=== PATIENT | male | born 1975 ===

== ENCOUNTER 2019-01-30 22:19 | Observation (INO) | payer OTHER ==
[2019-01-30] MEDS ORDERED: Sodium Chloride 0.9% 1,000 ML IV STA (22:37)
[2019-01-30 23:58] LABS: SQUAMOUS EPITHIAL < 1 /hpf (0-5); URINE BILIRUBIN NEGATIVE (NEGATIVE); URINE BLOOD NEGATIVE (NEGATIVE); URINE CLARITY CLEAR (Clear); URINE COLOR STRAW (YELLOW); URINE GLUCOSE (UA) >=500 mg/dL (NEGATIVE); URINE LEUKOCYTE ESTERASE NEG Leu/uL (Negative); URINE PROTEIN 100 mg/dL (NEGATIVE); URINE UROBILINOGEN 0.2-1.0 mg/dL (0.2-1.0)
[2019-01-31 00:06] LABS: VENOUS BLOOD GAS BASE EXCESS 0.1 mmol/L (0.0-2.0); VENOUS BLOOD GAS PCO2 39 mmHg (40-60); VENOUS BLOOD GAS PO2 46 mm/Hg (30-55); VENOUS BLOOD PH 7.41 (7.32-7.43)
[2019-01-31 00:11] LABS: BARBITURATES, UR NEGATIVE (NEGATIVE); BENZODIAZEPINES, UR NEGATIVE (NEGATIVE); OPIATES, UR NEGATIVE (NEGATIVE); PHENCYCLIDINE, UR NEGATIVE (NEGATIVE)
[2019-01-31 00:20] LABS: BASO # 0.1 K/uL (0.0-0.2); BASO % 0.8 % (0.0-2.0); EOS # 0.2 K/uL (0.0-0.7); EOS % 1.3 % (0.0-4.0); HEMOGLOBIN 15.6 g/dL (12.0-18.0); LYMPH # 4.6 K/uL (1.0-4.3); LYMPH % 29.4 % (20.0-40.0); MEAN CELL VOLUME 85.4 fl (80.0-94.0); MEAN CORPUSCULAR HEMOGLOBIN 29.9 pg (27.0-31.0); MEAN PLATELET VOLUME 9.3 fl (7.2-11.7); MONO % 6.7 % (0.0-10.0); NEUT # 9.6 K/uL (1.8-7.0); NEUT % 61.8 % (50.0-75.0); NRBC % 0.2 % (0.0-0.0); RBC 5.23 Mil/uL (4.40-5.90); RED CELL DISTRIBUTION WIDTH 13.1 % (11.5-14.5); WHITE BLOOD COUNT 15.6 K/uL (4.8-10.8)
[2019-01-31 00:21] LABS: ACETAMINOPHEN < 10.0 ug/ml (10.0-30.0); BLOOD UREA NITROGEN 21 mg/dl (9-20); CALCIUM 9.3 mg/dL (8.4-10.2); GFR NON-AFRICAN AMERICAN > 60; SALICYLATE < 1.0 mg/dl
[2019-01-31] MEDS ORDERED: Insulin Regular 100 units/ml SC STA ×4 (00:54→19:25)
[2019-01-31] MEDS ORDERED: Insulin Regular 100 units/ml ONE ×3 (01:04→17:51)
--- NOTE | 2019-01-31 01:04 | ED PDOC ---
HPI: Psych/Substance Abuse Time Seen by Provider: 01/30/19 22:29 Chief Complaint (Nursing): Psychiatric Evaluation Chief Complaint (Provider): Psychiatric Evaluation History Per: Patient, Family () History/Exam Limitations: no limitations Onset/Duration Of Symptoms: Days (x 2 weeks) Current Symptoms Are (Timing): Still Present Suicide/Self Injury Attempted (Context): None Additional Complaint(s): 43 year old male with a history of major depressive disorder and diabetes presents to the ED with for evaluation of bizarre behavior for the last 2 weeks. reports his behavior has become increasingly bizarre during that time. She states he was spending money that they do not currently have, being possessive over money, masturbating constantly throughout the day, generally not making sense and leaving the car running for hours. states they have a 12 year old daughter at home and that she does not feel comfortable with the patient around her. PMD: Dr. Luz Past Medical History Reviewed: Historical Data, Nursing Documentation, Vital Signs Vital Signs: Last Vital Signs Temp 99.6 F 01/30/19 22:21 Pulse 104 H 01/30/19 22:21 Resp 16 01/30/19 22:21 BP 153/82 H 01/30/19 22:21 Pulse Ox 99 01/30/19 22:21 - Medical History PMH: Asthma ("WHEN I WAS YOUNGER- NO LONGER A PROBLEM."), Depression (major depressive disorder), Diabetes, HTN, Hypercholesterolemia Denies: Chronic Kidney Disease - Surgical History Surgical History: No Surg Hx - Family History Family History: States: Unknown Family Hx - Home Medications Home Medications: Ambulatory Orders Medication Instructions Recorded Atorvastatin [Lipitor] 20 mg PO DAILY 11/30/18 Insulin Aspart, Recombinant 15 unit SC BID 11/30/18 [Novolog] Lisinopril [Zestril] 5 mg PO DAILY 11/30/18 MetFORMIN [glucOPHAGE] 1,000 mg PO BID 11/30/18 hydrALAZINE [hydralazine 10 mg PO DAILY 11/30/18 Hydrochloride] - Allergies Allergies/Adverse Reactions: Allergies Allergy/AdvReac Type Severity Reaction Status Date / Time Penicillins Allergy Intermediate "RASH AND Verified 11/30/18 08:42 SWELLING" Review of Systems ROS Statement: Except As Marked, All Systems Reviewed And Found Negative Psych: Positive for: Other (bizarre behavior) Physical Exam - Reviewed Nursing Documentation Reviewed: Yes Vital Signs Reviewed: Yes - Physical Exam Appears: Positive for: Non-toxic, No Acute Distress Head Exam: Positive for: ATRAUMATIC, NORMAL INSPECTION, NORMOCEPHALIC Skin: Positive for: Normal Color, Warm, Dry Eye Exam: Positive for: EOMI, Normal appearance, PERRL Neck: Positive for: Normal, Painless ROM, Supple Cardiovascular/Chest: Positive for: Regular Rate, Rhythm. Negative for: Murmur Respiratory: Positive for: Normal Breath Sounds. Negative for: Respiratory Distress Extremity: Positive for: Normal ROM (x 4). Negative for: Deformity Neurological/Psych: Positive for: Awake, Alert, Normal Tone, Other (Patient is exhibiting bizarre behavior. On exam, he is gesticulating playing the violin and making contorted facial movements. ). Negative for: Motor/Sensory Deficits - Laboratory Results Result Diagrams: 01/30/19 23:55 01/30/19 23:55 Lab Results: pO2 46 mm/Hg (30-55) 01/30/19 23:50 VBG pH 7.41 (7.32-7.43) 01/30/19 23:50 VBG pCO2 39 mmHg (40-60) L 01/30/19 23:50 VBG HCO3 24.6 mmol/L 01/30/19 23:50 VBG Total CO2 25.9 mmol/L (22-28) 01/30/19 23:50 VBG O2 Sat (Calc) 87.0 % (40-65) H 01/30/19 23:50 VBG Base Excess 0.1 mmol/L (0.0-2.0) 01/30/19 23:50 VBG Potassium 3.7 mmol/L (3.6-5.2) 01/30/19 23:50 Sodium 134.0 mmol/L (132-148) 01/30/19 23:50 Chloride 97.0 mmol/L (98-107) L 01/30/19 23:50 Glucose 367 mg/dL (75-110) H 01/30/19 23:50 Lactate 1.5 mmol/L (0.7-2.1) 01/30/19 23:50 FiO2 21.0 % 01/30/19 23:50 Urine Color Straw (YELLOW) 01/30/19 23:30 Urine Clarity Clear (Clear) 01/30/19 23: Urine pH 6.0 (5.0-8.0) 01/30/19 23: Ur Specific [place] 1.030 (1.003-1.030) 01/30/19: Urine Protein 100 mg/dL (NEGATIVE) 01/30/19: Urine Glucose (UA) >=500 mg/dL (NEGATIVE) 01/30/19: Urine Ketones Trace mg/dL (NEGATIVE) 01/30/19 23: Urine Blood Negative (NEGATIVE) 01/30/19: Urine Nitrate Negative (NEGATIVE) 01/30/19: Urine Bilirubin Negative (NEGATIVE) 01/30/19 Urine Urobilinogen 0.2-1.0 mg/dL (0.2-1.0) 01/30/19: Ur Leukocyte Esterase Neg Luisa/uL (Negative) 01/30/19: Urine Microscopic WBC < 1 /hpf (0-5) 01/30/19: Ur Squamous Epith Cells < 1 /hpf (0-5) 01/30/19: - ECG O2 Sat by Pulse Oximetry: 99 (RA) Pulse Ox Interpretation: Normal Medical Decision Making Medical Decision Makin:38 A&P: Decompensated manic bipolar disorder Will obtain labs for medical clearance and have patient evaluated by crisis. Orders: --VBG --CT Head --EKG --Acetaminophen --Alcohol serum --BMP --CBC --Salicylate --UDS --Ativan 2 mg IV --Insulin 15 units SC --NS IV 1,000 mls --UA 1:00 Patient hyperglycemic but no in DKA given normal pH, no gap, normal bicarb 3:00 EKG and CXR are normal Patient being evaluated by crisis 5:00 PAtient is to be screened by [facility] Resting comfortably currently Will give 1L NS to reduce blood sugar 7:[address] Becerra pending [facility] eval Scribe Attestation: Documented by Aide Solitario, acting as a scribe Kurt Mix MD Provider Scribe Attestation: All medical record entries made by the Scribe were at my direction and personally dictated by me. I have reviewed the chart and agree that the record accurately reflects my personal performance of the history, physical exam, medic al decision making, and the department course for this patient. I have also personally directed, reviewed, and agree with the discharge instructions and disposition. Disposition - Clinical Impression Clinical Impression: Juju - Patient ED Disposition Is Patient to be Admitted: Transfer of Care - Disposition Disposition: Transfer of Care Disposition Time: 07:00 Condition: STABLE Forms: [employer] (Gabonese) Patient Signed Over To: Chaim Becerra
[2019-01-31] MEDS ORDERED: Sodium Chloride 0.9% 1,000 ML IV STA ×2 (06:07→20:28)
--- NOTE | 2019-01-31 07:04 | ED PDOC ---
- Laboratory Results Result Diagrams: 01/30/19 23:55 01/30/19 23:55 Lab Results: pO2 46 mm/Hg (30-55) 01/30/19 23:50 VBG pH 7.41 (7.32-7.43) 01/30/19 23:50 VBG pCO2 39 mmHg (40-60) L 01/30/19 23:50 VBG HCO3 24.6 mmol/L 01/30/19 23:50 VBG Total CO2 25.9 mmol/L (22-28) 01/30/19 23:50 VBG O2 Sat (Calc) 87.0 % (40-65) H 01/30/19 23:50 VBG Base Excess 0.1 mmol/L (0.0-2.0) 01/30/19 23:50 VBG Potassium 3.7 mmol/L (3.6-5.2) 01/30/19 23:50 Sodium 134.0 mmol/L (132-148) 01/30/19 23:50 Chloride 97.0 mmol/L (98-107) L 01/30/19 23:50 Glucose 367 mg/dL (75-110) H 01/30/19 23:50 Lactate 1.5 mmol/L (0.7-2.1) 01/30/19 23:50 FiO2 21.0 % 01/30/19 23:50 Urine Color Straw (YELLOW) 01/30/19 23:30 Urine Clarity Clear (Clear) 01/30/19 23:30 Urine pH 6.0 (5.0-8.0) 01/30/19 23:30 Ur Specific [place] 1.030 (1.003-1.030) 01/30/19 23:30 Urine Protein 100 mg/dL (NEGATIVE) 01/30/19 23:30 Urine Glucose (UA) >=500 mg/dL (NEGATIVE) 01/30/19 23:30 Urine Ketones Trace mg/dL (NEGATIVE) 01/30/19 23:30 Urine Blood Negative (NEGATIVE) 01/30/19 23:30 Urine Nitrate Negative (NEGATIVE) 01/30/19 23:30 Urine Bilirubin Negative (NEGATIVE) 01/30/19 23:30 Urine Urobilinogen 0.2-1.0 mg/dL (0.2-1.0) 04/17/19 23:30 Ur Leukocyte Esterase Neg Luisa/uL (Negative) 01/30/19 23:30 Urine Microscopic WBC < 1 /hpf (0-5) 01/30/19 23:30 Ur Squamous Epith Cells < 1 /hpf (0-5) 01/30/19 23:30 - ECG O2 Sat by Pulse Oximetry: 97 Pulse Ox Interpretation: Normal Medical Decision Making Medical Decision Makin: Dr. Mix signed out to Dr. Becerra. Pending [facility] evaluation. 1043: Crisis saw pt. Will sign in. Medically stable for further psych eval. Disposition - Clinical Impression Clinical Impression: Bipolar disorder, unspecified - POA Present On Arrival: None - Disposition Disposition: Admitted as In-Patient Disposition Time: 10:44 Condition: STABLE
--- NOTE | 2019-01-31 08:54 | CT ---
Date of service: 01/30/2019 PROCEDURE: CT HEAD WITHOUT CONTRAST. HISTORY: Altered mental status COMPARISON: None available. TECHNIQUE: Axial computed tomography images were obtained through the head/brain without intravenous contrast. Radiation dose: Total exam DLP = 877.13 mGy-cm. This CT exam was performed using one or more of the following dose reduction techniques: Automated exposure control, adjustment of the mA and/or kV according to patient size, and/or use of iterative reconstruction technique. FINDINGS: HEMORRHAGE: No intracranial hemorrhage. BRAIN: Whitaker-white matter differentiation is preserved. There is no mass, mass effect or abnormal extra-axial fluid collection. There is no territorial infarction. The midline sagittal structures are normal. VENTRICLES: There is mild age-related global parenchymal volume loss and proportionate enlargement of the ventricles and cortical sulci. CALVARIUM: There is no calvarial fracture or extracranial soft tissue swelling. PARANASAL SINUSES: Predominantly clear. MASTOID AIR CELLS: Predominantly clear. OTHER FINDINGS: None. IMPRESSION: No acute intracranial abnormality. A preliminary report was provided by [facility].
--- NOTE | 2019-01-31 12:58 | CP.PCM.CON ---
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 Past Patient History - Past Medical History & Family History Past Medical History?: Yes - Past Social History Smoking Status: Light Smoker < 10 Cigarettes Daily - CARDIAC Hx Hypercholesterolemia: Yes Hx Hypertension: Yes - PULMONARY Hx Asthma: Yes ("WHEN I WAS YOUNGER- NO LONGER A PROBLEM.") - NEUROLOGICAL HX Cerebrovascular Accident: No Hx Seizures: No - HEENT Hx HEENT Problems: No - RENAL Hx Chronic Kidney Disease: No - ENDOCRINE/METABOLIC Hx Endocrine Disorders: Yes Hx Diabetes Mellitus Type 2: Yes - HEMATOLOGICAL/ONCOLOGICAL Hx Cancer: No Hx Human Immunodeficiency Virus (HIV): No - INTEGUMENTARY Hx Dermatological Problems: No - MUSCULOSKELETAL/RHEUMATOLOGICAL Hx Musculoskeletal Disorders: Yes Other/Comment: " I HAD SURGERY ON MY LEG BECAUSE I HAD FLAT FEET."(PT. UNABLE TO GIVE ANY OTHER INFO.) - GASTROINTESTINAL Hx Gastrointestinal Disorders: No - GENITOURINARY/GYNECOLOGICAL Hx Sexually Transmitted Disorders: No - PSYCHIATRIC Hx Depression: Yes (major depressive disorder) - SURGICAL HISTORY Hx Surgeries: Yes Other/Comment: HX: "SURGERY TO LEG" - ANESTHESIA Hx Anesthesia: Yes Hx Anesthesia Reactions: No Hx Malignant Hyperthermia: No Meds Allergies/Adverse Reactions: Allergies Allergy/AdvReac Type Severity Reaction Status Date / Time Penicillins Allergy Intermediate "RASH AND Verified 11/30/18 08:42 SWELLING" Results - Vital Signs Recent Vital Signs: Last Vital Signs Temp 98.3 F 01/31/19 06:53 Pulse 75 01/31/19 06:53 Resp 17 01/31/19 06:53 BP 135/75 01/31/19 06:53 Pulse Ox 97 01/31/19 10:44 - Labs Result Diagrams: 01/30/19 23:55 01/30/19 23:55 Labs: Laboratory Results - last 24 hr 01/30/19 01/30/19 01/30/19 22:35 23:30 23:30 WBC RBC Hgb Hct MCV MCH MCHC RDW Plt Count MPV Neut % (Auto) Lymph % (Auto) [place] % (Auto) Eos % (Auto) Baso % (Auto) Neut # (Auto) Lymph # (Auto) [place] # (Auto) Eos # (Auto) Baso # (Auto) pO2 VBG pH VBG pCO2 VBG HCO3 VBG Total CO2 VBG O2 Sat (Calc) VBG Base Excess VBG Potassium Sodium Chloride Glucose Lactate FiO2 Potassium Carbon Dioxide Anion Gap BUN Creatinine Est GFR ( Amer) Est GFR (Non-Af Amer) POC Glucose (mg/dL) 422 H* Random Glucose Calcium Venous Blood Potassium Urine Color Straw Urine Clarity Clear Urine pH 6.0 Ur Specific [place] 1.030 Urine Protein 100 Urine Glucose (UA) >=500 Urine Ketones Trace Urine Blood Negative Urine Nitrate Negative Urine Bilirubin Negative Urine Urobilinogen 0.2-1.0 Ur Leukocyte Esterase Neg Urine Microscopic WBC < 1 Ur Squamous Epith Cells < 1 Salicylates Urine Opiates Screen Negative Urine Methadone Screen Negative Acetaminophen Ur Barbiturates Screen Negative Ur Phencyclidine Scrn Negative Ur Amphetamines Screen Negative U Benzodiazepines Scrn Negative U Oth Cocaine Metabols Negative U Cannabinoids Screen Negative Alcohol, Quantitative 01/30/19 01/30/19 01/30/19 23:50 23:55 23:55 WBC RBC Hgb Hct MCV MCH MCHC RDW Plt Count MPV Neut % (Auto) Lymph % (Auto) [place] % (Auto) Eos % (Auto) Baso % (Auto) Neut # (Auto) Lymph # (Auto) [place] # (Auto) Eos # (Auto) Baso # (Auto) pO2 46 VBG pH 7.41 VBG pCO2 39 L VBG HCO3 24.6 VBG Total CO2 25.9 VBG O2 Sat (Calc) 87.0 H VBG Base Excess 0.1 VBG Potassium 3.7 Sodium 134.0 132 Chloride 97.0 L 98 Glucose 367 H Lactate 1.5 FiO2 21.0 Potassium 3.8 Carbon Dioxide 22 Anion Gap 16 BUN 21 H Creatinine 0.4 L Est GFR ( Amer) > 60 Est GFR (Non-Af Amer) > 60 POC Glucose (mg/dL) Random Glucose 349 H Calcium 9.3 Venous Blood Potassium 3.7 Urine Color Urine Clarity Urine pH Ur Specific [place] Urine Protein Urine Glucose (UA) Urine Ketones Urine Blood Urine Nitrate Urine Bilirubin Urine Urobilinogen Ur Leukocyte Esterase Urine Microscopic WBC Ur Squamous Epith Cells Salicylates < 1.0 Urine Opiates Screen Urine Methadone Screen Acetaminophen < 10.0 L Ur Barbiturates Screen Ur Phencyclidine Scrn Ur Amphetamines Screen U Benzodiazepines Scrn U Oth Cocaine Metabols U Cannabinoids Screen Alcohol, Quantitative < 10 01/30/19 01/31/19 01/31/19 23:55 03:16 04:35 WBC 15.6 H RBC 5.23 Hgb 15.6 Hct 44.6 MCV 85.4 MCH 29.9 MCHC 35.0 RDW 13.1 Plt Count 264 MPV 9.3 Neut % (Auto) 61.8 Lymph % (Auto) 29.4 [place] % (Auto) 6.7 Eos % (Auto) 1.3 Baso % (Auto) 0.8 Neut # (Auto) 9.6 H Lymph # (Auto) 4.6 H [place] # (Auto) 1.0 H Eos # (Auto) 0.2 Baso # (Auto) 0.1 pO2 VBG pH VBG pCO2 VBG HCO3 VBG Total CO2 VBG O2 Sat (Calc) VBG Base Excess VBG Potassium Sodium Chloride Glucose Lactate FiO2 Potassium Carbon Dioxide Anion Gap BUN Creatinine Est GFR ( Amer) Est GFR (Non-Af Amer) POC Glucose (mg/dL) 393 H 467 H* Random Glucose Calcium Venous Blood Potassium Urine Color Urine Clarity Urine pH Ur Specific [place] Urine Protein Urine Glucose (UA) Urine Ketones Urine Blood Urine Nitrate Urine Bilirubin Urine Urobilinogen Ur Leukocyte Esterase Urine Microscopic WBC Ur Squamous Epith Cells Salicylates Urine Opiates Screen Urine Methadone Screen Acetaminophen Ur Barbiturates Screen Ur Phencyclidine Scrn Ur Amphetamines Screen U Benzodiazepines Scrn U Oth Cocaine Metabols U Cannabinoids Screen Alcohol, Quantitative 01/31/19 01/31/19 01/31/19 06:25 07:53 11:21 WBC RBC Hgb Hct MCV MCH MCHC RDW Plt Count MPV Neut % (Auto) Lymph % (Auto) [place] % (Auto) Eos % (Auto) Baso % (Auto) Neut # (Auto) Lymph # (Auto) [place] # (Auto) Eos # (Auto) Baso # (Auto) pO2 VBG pH VBG pCO2 VBG HCO3 VBG Total CO2 VBG O2 Sat (Calc) VBG Base Excess VBG Potassium Sodium Chloride Glucose Lactate FiO2 Potassium Carbon Dioxide Anion Gap BUN Creatinine Est GFR ( Amer) Est GFR (Non-Af Amer) POC Glucose (mg/dL) 265 H 204 H 254 H Random Glucose Calcium Venous Blood Potassium Urine Color Urine Clarity Urine pH Ur Specific [place] Urine Protein Urine Glucose (UA) Urine Ketones Urine Blood Urine Nitrate Urine Bilirubin Urine Urobilinogen Ur Leukocyte Esterase Urine Microscopic WBC Ur Squamous Epith Cells Salicylates Urine Opiates Screen Urine Methadone Screen Acetaminophen Ur Barbiturates Screen Ur Phencyclidine Scrn Ur Amphetamines Screen U Benzodiazepines Scrn U Oth Cocaine Metabols U Cannabinoids Screen Alcohol, Quantitative
[2019-01-31 15:10] LABS: BASO # 0.1 K/uL (0.0-0.2); BASO % 1.4 % (0.0-2.0); EOS # 0.2 K/uL (0.0-0.7); EOS % 2.1 % (0.0-4.0); HEMOGLOBIN 15.4 g/dL (12.0-18.0); LYMPH # 3.1 K/uL (1.0-4.3); LYMPH % 34.3 % (20.0-40.0); MEAN CORPUSCULAR HEMOGLOBIN 29.4 pg (27.0-31.0); MEAN CORPUSCULAR HGB CONC 34.2 g/dL (33.0-37.0); MEAN PLATELET VOLUME 8.9 fl (7.2-11.7); MONO # 0.5 K/uL (0.0-0.8); MONO % 6.1 % (0.0-10.0); NEUT % 56.1 % (50.0-75.0); NRBC % 0.1 % (0.0-0.0); RBC 5.23 Mil/uL (4.40-5.90); RED CELL DISTRIBUTION WIDTH 13.4 % (11.5-14.5); WHITE BLOOD COUNT 8.9 K/uL (4.8-10.8)
--- NOTE | 2019-01-31 15:45 | ED PDOC ---
- Laboratory Results Result Diagrams: 02/01/19 03:20 02/01/19 11:45 Lab Results: pO2 46 mm/Hg (30-55) 01/30/19 23:50 VBG pH 7.41 (7.32-7.43) 01/30/19 23:50 VBG pCO2 39 mmHg (40-60) L 01/30/19 23:50 VBG HCO3 24.6 mmol/L 01/30/19 23:50 VBG Total CO2 25.9 mmol/L (22-28) 01/30/19 23:50 VBG O2 Sat (Calc) 87.0 % (40-65) H 01/30/19 23:50 VBG Base Excess 0.1 mmol/L (0.0-2.0) 01/30/19 23:50 VBG Potassium 3.7 mmol/L (3.6-5.2) 01/30/19 23:50 Sodium 134.0 mmol/L (132-148) 01/30/19 23:50 Chloride 97.0 mmol/L (98-107) L 01/30/19 23:50 Glucose 367 mg/dL (75-110) H 01/30/19 23:50 Lactate 1.5 mmol/L (0.7-2.1) 01/30/19 23:50 FiO2 21.0 % 01/30/19 23:50 Urine Color Straw (YELLOW) 01/30/19 23:30 Urine Clarity Clear (Clear) 01/30/19 23:30 Urine pH 6.0 (5.0-8.0) 01/30/19 23:30 Ur Specific [place] 1.030 (1.003-1.030) 01/30/19 23:30 Urine Protein 100 mg/dL (NEGATIVE) 01/30/19 23:30 Urine Glucose (UA) >=500 mg/dL (NEGATIVE) 01/30/19 23:30 Urine Ketones Trace mg/dL (NEGATIVE) 01/30/19 23:30 Urine Blood Negative (NEGATIVE) 01/30/19 23:30 Urine Nitrate Negative (NEGATIVE) 01/30/19 23:30 Urine Bilirubin Negative (NEGATIVE) 01/30/19 23:30 Urine Urobilinogen 0.2-1.0 mg/dL (0.2-1.0) 04/17/19 23:30 Ur Leukocyte Esterase Neg Luisa/uL (Negative) 01/30/19 23:30 Urine Microscopic WBC < 1 /hpf (0-5) 01/30/19 23:30 Ur Squamous Epith Cells < 1 /hpf (0-5) 01/30/19 23:30 - ECG O2 Sat by Pulse Oximetry: 98 Medical Decision Making Medical Decision Makin: Recieved endorsed From Dr. Becerra. patient [place] [facility] REQUEST[place] A CBC and chest x- ray which are pending. however, patient is medical cleared on prior shift. 1830 Pt continuing to have glucose slightly elevated and [facility] [place] control <200. Insulin sliding scale ordered with continued prn insulin push. 2130 Pt stable. DW sister plan of care at this point. [address] Beckham Pt pending bed availability at [facility] as well as continue glucose control Disposition - Clinical Impression Clinical Impression: Bipolar disorder, unspecified, Uncontrolled diabetes mellitus - POA Present On Arrival: Poor Glycemic Control - Disposition Disposition: Transfer of Care Disposition Time: 00:30 Condition: FAIR
[2019-01-31] MEDS ORDERED: Insulin Regular 100 units/ml IVP STA (17:46)
[2019-01-31] MEDS: Insulin Regular 100 units/ml SC SCH (23:11)
[2019-02-01] MEDS ORDERED: Insulin Regular 100 units/ml IVP STA (00:42)
[2019-02-01] MEDS ORDERED: Insulin Regular 100 units/ml ONE ×4 (00:46→08:09)
[2019-02-01] MEDS ORDERED: Insulin Regular 100 units/ml IV STA ×2 (03:04→04:54)
[2019-02-01 03:31] LABS: BASO # 0.1 K/uL (0.0-0.2); BASO % 0.6 % (0.0-2.0); EOS # 0.2 K/uL (0.0-0.7); HEMOGLOBIN 14.6 g/dL (12.0-18.0); LYMPH # 4.2 K/uL (1.0-4.3); LYMPH % 39.6 % (20.0-40.0); MEAN CELL VOLUME 85.4 fl (80.0-94.0); MEAN CORPUSCULAR HEMOGLOBIN 29.1 pg (27.0-31.0); MEAN CORPUSCULAR HGB CONC 34.1 g/dL (33.0-37.0); MEAN PLATELET VOLUME 8.7 fl (7.2-11.7); MONO # 0.3 K/uL (0.0-0.8); MONO % 2.7 % (0.0-10.0); NEUT # 5.9 K/uL (1.8-7.0); NEUT % 55.1 % (50.0-75.0); NRBC % 0.1 % (0.0-0.0); RBC 5.03 Mil/uL (4.40-5.90); RED CELL DISTRIBUTION WIDTH 13.4 % (11.5-14.5); WHITE BLOOD COUNT 10.7 K/uL (4.8-10.8)
[2019-02-01 03:36] LABS: BLOOD UREA NITROGEN 15 mg/dl (9-20); CALCIUM 8.4 mg/dL (8.4-10.2); GFR NON-AFRICAN AMERICAN > 60
--- NOTE | 2019-02-01 04:12 | ED PDOC ---
- Laboratory Results Result Diagrams: 02/01/19 03:20 02/01/19 03:20 Lab Results: pO2 46 mm/Hg (30-55) 01/30/19 23:50 VBG pH 7.41 (7.32-7.43) 01/30/19 23:50 VBG pCO2 39 mmHg (40-60) L 01/30/19 23:50 VBG HCO3 24.6 mmol/L 01/30/19 23:50 VBG Total CO2 25.9 mmol/L (22-28) 01/30/19 23:50 VBG O2 Sat (Calc) 87.0 % (40-65) H 01/30/19 23:50 VBG Base Excess 0.1 mmol/L (0.0-2.0) 01/30/19 23:50 VBG Potassium 3.7 mmol/L (3.6-5.2) 01/30/19 23:50 Sodium 134.0 mmol/L (132-148) 01/30/19 23:50 Chloride 97.0 mmol/L (98-107) L 01/30/19 23:50 Glucose 367 mg/dL (75-110) H 01/30/19 23:50 Lactate 1.5 mmol/L (0.7-2.1) 01/30/19 23:50 FiO2 21.0 % 01/30/19 23:50 Urine Color Straw (YELLOW) 01/30/19 23:30 Urine Clarity Clear (Clear) 01/30/19 23:30 Urine pH 6.0 (5.0-8.0) 01/30/19 23:30 Ur Specific [place] 1.030 (1.003-1.030) 01/30/19 23:30 Urine Protein 100 mg/dL (NEGATIVE) 01/30/19 23:30 Urine Glucose (UA) >=500 mg/dL (NEGATIVE) 01/30/19 23:30 Urine Ketones Trace mg/dL (NEGATIVE) 01/30/19 23:30 Urine Blood Negative (NEGATIVE) 01/30/19 23:30 Urine Nitrate Negative (NEGATIVE) 01/30/19 23:30 Urine Bilirubin Negative (NEGATIVE) 01/30/19 23:30 Urine Urobilinogen 0.2-1.0 mg/dL (0.2-1.0) 04/17/19 23:30 Ur Leukocyte Esterase Neg Luisa/uL (Negative) 01/30/19 23:30 Urine Microscopic WBC < 1 /hpf (0-5) 01/30/19 23:30 Ur Squamous Epith Cells < 1 /hpf (0-5) 01/30/19 23:30 - ECG O2 Sat by Pulse Oximetry: 97 (RA) Pulse Ox Interpretation: Normal Medical Decision Making Medical Decision Makin Patient endorsed by Dr. Benoit, pending improvement in blood glucose below 200 for transfer to [facility] [place]. 0403 Blood glucose remains high given additional insulin. Repeat labs to make sure no more electrolyte abnormalities or other sings of infection. 0503 Glucose improving but has not reached below 200. Labs show hypokalemia, will repeat potassium. Given additional insulin and reevaluate. Patient comfortable and cooperative. 0651 Patient continues with medical workup for hyperglycemia Patient given morning dose of metformin and additional IV fluids Patient remains on insulin sliding scale for diabetes 0700 Patient to be signed out to Dr. Morgan, pending controlling blood sugar and [facility] [place] bed. Scribe Attestation: Documented by Shanice Michelle, acting as a scribe for Zainab Beckham MD. Provider Scribe Attestation: All medical record entries made by the Scribe were at my direction and personally dictated by me. I have reviewed the chart and agree that the record accurately reflects my personal performance of the history, physical exam, medical decision making, and the department course for this patient. I have also personally directed, reviewed, and agree with the discharge instructions and disposition. Disposition - Clinical Impression Clinical Impression: Bipolar disorder, unspecified, Uncontrolled diabetes mellitus - POA Present On Arrival: None - Disposition Disposition: Transfer of Care Disposition Time: 07:00 Condition: STABLE Forms: [employer] (Greenlandic) Patient Signed Over To: Keven Morgan
[2019-02-01] MEDS ORDERED: Potassium Chloride 20 mEq ER Tab PO STA (04:53)
[2019-02-01] MEDS ORDERED: Potassium Chloride 20 mEq ER Tab PO ONE (05:05)
[2019-02-01] MEDS ORDERED: Insulin Regular 100 units/ml SC STA (05:27)
[2019-02-01] MEDS ORDERED: Sodium Chloride 0.9% 1,000 ML IV STA (06:51)
--- NOTE | 2019-02-01 07:06 | ED PDOC ---
- Laboratory Results Result Diagrams: 02/01/19 03:20 02/01/19 03:20 Lab Results: pO2 46 mm/Hg (30-55) 01/30/19 23:50 VBG pH 7.41 (7.32-7.43) 01/30/19 23:50 VBG pCO2 39 mmHg (40-60) L 01/30/19 23:50 VBG HCO3 24.6 mmol/L 01/30/19 23:50 VBG Total CO2 25.9 mmol/L (22-28) 01/30/19 23:50 VBG O2 Sat (Calc) 87.0 % (40-65) H 01/30/19 23:50 VBG Base Excess 0.1 mmol/L (0.0-2.0) 01/30/19 23:50 VBG Potassium 3.7 mmol/L (3.6-5.2) 01/30/19 23:50 Sodium 134.0 mmol/L (132-148) 01/30/19 23:50 Chloride 97.0 mmol/L (98-107) L 01/30/19 23:50 Glucose 367 mg/dL (75-110) H 01/30/19 23:50 Lactate 1.5 mmol/L (0.7-2.1) 01/30/19 23:50 FiO2 21.0 % 01/30/19 23:50 Urine Color Straw (YELLOW) 01/30/19 23:30 Urine Clarity Clear (Clear) 01/30/19 23:30 Urine pH 6.0 (5.0-8.0) 01/30/19 23:30 Ur Specific [place] 1.030 (1.003-1.030) 01/30/19 23:30 Urine Protein 100 mg/dL (NEGATIVE) 01/30/19 23:30 Urine Glucose (UA) >=500 mg/dL (NEGATIVE) 01/30/19 23:30 Urine Ketones Trace mg/dL (NEGATIVE) 01/30/19 23:30 Urine Blood Negative (NEGATIVE) 01/30/19 23:30 Urine Nitrate Negative (NEGATIVE) 01/30/19 23:30 Urine Bilirubin Negative (NEGATIVE) 01/30/19 23:30 Urine Urobilinogen 0.2-1.0 mg/dL (0.2-1.0) 04/17/19 23:30 Ur Leukocyte Esterase Neg Luisa/uL (Negative) 01/30/19 23:30 Urine Microscopic WBC < 1 /hpf (0-5) 01/30/19 23:30 Ur Squamous Epith Cells < 1 /hpf (0-5) 01/30/19 23:30 - ECG O2 Sat by Pulse Oximetry: 97 (RA) Medical Decision Making Medical Decision Making: Time: 0700 --Patient is endorsed to provider by Dr. Beckham, pending [facility] bed availability once glucose is controlled. Present accucheck at 225mg/dL, otherwise, patient is resting comfortably with stable vitals. Time: 0802 --Repeat accucheck: 227mg/dL. Case discussed with Dr. Landers, medical services, who accepts patient for admission for further treatment of uncontrolled diabetes. Scribe Attestation: Documented by Samantha Abebe, acting as a scribe for Keven Morgan MD. Provider Scribe Attestation: All medical record entries made by the Scribe were at my direction and personally dictated by me. I have reviewed the chart and agree that the record accurately reflects my personal performance of the history, physical exam, medical decision making, and the department course for this patient. I have also personally directed, reviewed, and agree with the discharge instructions and disposition. Disposition - Clinical Impression Clinical Impression: Bipolar disorder, unspecified, Uncontrolled diabetes mellitus - POA Present On Arrival: None - Disposition Disposition: Hospitalized as Observation Patient Disposition Time: 08:05 Condition: FAIR Forms: [employer] (Vietnamese)
[2019-02-01] MEDS: Insulin Regular 100 units/ml SC SCH (08:09)
[2019-02-01] MEDS ORDERED: Dextrose 50% SYRINGE Inj (50 ml) IV PRN (08:58)
[2019-02-01] MEDS ORDERED: Glucagon Recombinant 1 mg Inj IM PRN (08:58)
--- NOTE | 2019-02-01 09:11 | CP.PCM.HP ---
<Alonso Clarke - Last Filed: 02/01/19 09:38> History of Present Illness - History of Present Illness History of Present Illness: 43 y/o M with a PMHx of depression and DM2 was brought to ED by due to bizarre behavior since 2 weeks ago. Upon review of chart, pt was spending money that they do not currently have, being possessive over money, masturbating constantly throughout the day, generally not making sense and leaving the car running for hours. --Pt has been accepted to be admitted involuntarily at [facility]; however, due to elevated glucose level pt will remain hospitalized for stabilization. At ED, pt received multiple administration of insulin with partial control of serum glucose level. --Pt reports feeling well with NO complaints. Pt denies headache, fever, chills, cough, nasal congestion, chest pain, SOB, abdominal pain, N/V or diarrhea. Pt reports having DM2 for the last 15 years. PMD: Jody Luz MD Allergies: Penicillins Meds: Metformin 1,000mg PO BID; Soliqua SC 30units SC HS, Lisinopril 5mg PO daily, Lovastatin 20mg PO daily, Mirtazapine 45mg PO HS, Atarax 10mg PO daily. -PMHx: Depression, IDDM -PSHx: denied -SHx: 1 cigarette a day, ocasinal alcohol and NO rec drugs. Present on Admission - Present on Admission Any Indicators Present on Admission: No Review of Systems - Constitutional Constitutional: absent: Chills, Fever - EENT Eyes: absent: Blurred Vision Nose/Mouth/Throat: absent: Nasal Congestion, Sore Throat, Tongue Swelling, Neck Pain, Neck Mass - Cardiovascular Cardiovascular: absent: Chest Pain, Dyspnea, Leg Edema, Palpitations - Respiratory Respiratory: absent: Cough, Dyspnea, Hemoptysis - Gastrointestinal Gastrointestinal: absent: Abdominal Pain, Bloating, Diarrhea, Nausea, Vomiting - Genitourinary Genitourinary: absent: Dysuria, Flank Pain, Hematuria - Musculoskeletal Musculoskeletal: absent: Back Pain, Myalgias, Neck Pain, Numbness Past Patient History - Past Medical History & Family History Past Medical History?: Yes - Past Social History Smoking Status: Light Smoker < 10 Cigarettes Daily - CARDIAC Hx Hypercholesterolemia: Yes Hx Hypertension: Yes - PULMONARY Hx Asthma: Yes ("WHEN I WAS YOUNGER- NO LONGER A PROBLEM.") - NEUROLOGICAL HX Cerebrovascular Accident: No Hx Seizures: No - HEENT Hx HEENT Problems: No - RENAL Hx Chronic Kidney Disease: No - ENDOCRINE/METABOLIC Hx Endocrine Disorders: Yes Hx Diabetes Mellitus Type 2: Yes - HEMATOLOGICAL/ONCOLOGICAL Hx Cancer: No Hx Human Immunodeficiency Virus (HIV): No - INTEGUMENTARY Hx Dermatological Problems: No - MUSCULOSKELETAL/RHEUMATOLOGICAL Hx Musculoskeletal Disorders: Yes Other/Comment: " I HAD SURGERY ON MY LEG BECAUSE I HAD FLAT FEET."(PT. UNABLE TO GIVE ANY OTHER INFO.) - GASTROINTESTINAL Hx Gastrointestinal Disorders: No - GENITOURINARY/GYNECOLOGICAL Hx Sexually Transmitted Disorders: No - PSYCHIATRIC Hx Depression: Yes (major depressive disorder) - SURGICAL HISTORY Hx Surgeries: Yes Other/Comment: HX: "SURGERY TO LEG" - ANESTHESIA Hx Anesthesia: Yes Hx Anesthesia Reactions: No Hx Malignant Hyperthermia: No Meds Allergies/Adverse Reactions: Allergies Allergy/AdvReac Type Severity Reaction Status Date / Time Penicillins Allergy Intermediate "RASH AND Verified 11/30/18 08:42 SWELLING" Physical Exam - Constitutional Appears: No Acute Distress - Head Exam Head Exam: ATRAUMATIC, NORMAL INSPECTION - Eye Exam Eye Exam: EOMI, PERRL - ENT Exam ENT Exam: Mucous Membranes Moist - Neck Exam Neck exam: Positive for: Full Rom, Normal Inspection. Negative for: Meningismus - Respiratory Exam Respiratory Exam: NORMAL BREATHING PATTERN. absent: Decreased Breath Sounds, Rales, Rhonchi, Wheezes, Respiratory Distress - Cardiovascular Exam Cardiovascular Exam: REGULAR RHYTHM, +S1, +S2 - GI/Abdominal Exam GI & Abdominal Exam: Soft. absent: Guarding, Pulsatile Mass, Rebound, Rigid, Tenderness - Extremities Exam Extremities exam: Positive for: full ROM. Negative for: calf tenderness, pedal edema - Back Exam Back exam: absent: CVA tenderness (L), CVA tenderness (R) - Neurological Exam Neurological exam: Alert, Oriented x3 Results - Vital Signs Recent Vital Signs: Last Vital Signs Temp 98.3 F 02/01/19 08:52 Pulse 80 02/01/19 08:52 Resp 18 02/01/19 08:52 BP 133/70 02/01/19 08:52 Pulse Ox 97 02/01/19 08:52 - Labs Result Diagrams: 02/01/19 03:20 02/01/19 03:20 Labs: Laboratory Results - last 24 hr 01/31/19 01/31/19 01/31/19 11:21 14:51 15:00 WBC 8.9 RBC 5.23 Hgb 15.4 Hct 45.0 MCV 86.0 MCH 29.4 MCHC 34.2 RDW 13.4 Plt Count 239 MPV 8.9 Neut % (Auto) 56.1 Lymph % (Auto) 34.3 [place] % (Auto) 6.1 Eos % (Auto) 2.1 Baso % (Auto) 1.4 Neut # (Auto) 5.0 Lymph # (Auto) 3.1 [place] # (Auto) 0.5 Eos # (Auto) 0.2 Baso # (Auto) 0.1 Sodium Potassium Chloride Carbon Dioxide Anion Gap BUN Creatinine Est GFR ( Amer) Est GFR (Non-Af Amer) POC Glucose (mg/dL) 254 H 395 H Random Glucose Calcium 01/31/19 01/31/19 01/31/19 17:44 19:14 20:19 WBC RBC Hgb Hct MCV MCH MCHC RDW Plt Count MPV Neut % (Auto) Lymph % (Auto) [place] % (Auto) Eos % (Auto) Baso % (Auto) Neut # (Auto) Lymph # (Auto) [place] # (Auto) Eos # (Auto) Baso # (Auto) Sodium Potassium Chloride Carbon Dioxide Anion Gap BUN Creatinine Est GFR ( Amer) Est GFR (Non-Af Amer) POC Glucose (mg/dL) > 500 H* 240 H 225 H Random Glucose Calcium 01/31/19 02/01/19 02/01/19 22:53 00:39 03:01 WBC RBC Hgb Hct MCV MCH MCHC RDW Plt Count MPV Neut % (Auto) Lymph % (Auto) [place] % (Auto) Eos % (Auto) Baso % (Auto) Neut # (Auto) Lymph # (Auto) [place] # (Auto) Eos # (Auto) Baso # (Auto) Sodium Potassium Chloride Carbon Dioxide Anion Gap BUN Creatinine Est GFR ( Amer) Est GFR (Non-Af Amer) POC Glucose (mg/dL) 273 H 216 H 237 H Random Glucose Calcium 02/01/19 02/01/19 02/01/19 03:20 03:20 04:47 WBC 10.7 RBC 5.03 Hgb 14.6 Hct 42.9 MCV 85.4 MCH 29.1 MCHC 34.1 RDW 13.4 Plt Count 236 MPV 8.7 Neut % (Auto) 55.1 Lymph % (Auto) 39.6 [place] % (Auto) 2.7 Eos % (Auto) 2.0 Baso % (Auto) 0.6 Neut # (Auto) 5.9 Lymph # (Auto) 4.2 [place] # (Auto) 0.3 Eos # (Auto) 0.2 Baso # (Auto) 0.1 Sodium 138 Potassium 3.1 L Chloride 106 Carbon Dioxide 23 Anion Gap 12 BUN 15 Creatinine 0.4 L Est GFR ( Amer) > 60 Est GFR (Non-Af Amer) > 60 POC Glucose (mg/dL) 231 H Random Glucose 205 H Calcium 8.4 02/01/19 02/01/19 02/01/19 04:51 06:46 06:47 WBC RBC Hgb Hct MCV MCH MCHC RDW Plt Count MPV Neut % (Auto) Lymph % (Auto) [place] % (Auto) Eos % (Auto) Baso % (Auto) Neut # (Auto) Lymph # (Auto) [place] # (Auto) Eos # (Auto) Baso # (Auto) Sodium Potassium Chloride Carbon Dioxide Anion Gap BUN Creatinine Est GFR ( Amer) Est GFR (Non-Af Amer) POC Glucose (mg/dL) 215 H 233 H 225 H Random Glucose Calcium 02/01/19 08:00 WBC RBC Hgb Hct MCV MCH MCHC RDW Plt Count MPV Neut % (Auto) Lymph % (Auto) [place] % (Auto) Eos % (Auto) Baso % (Auto) Neut # (Auto) Lymph # (Auto) [place] # (Auto) Eos # (Auto) Baso # (Auto) Sodium Potassium Chloride Carbon Dioxide Anion Gap BUN Creatinine Est GFR ( Amer) Est GFR (Non-Af Amer) POC Glucose (mg/dL) 227 H Random Glucose Calcium Assessment & Plan - Assessment and Plan (Free Text) Assessment: 43 y/o M with a PMHx of DM2 and depression, currently being evaluated for bi zarre behavior, is admitted for evaluation and management of persistent hyperglycemia. PLAN: >Type 2 Diabetes Mellitus with Hyperglycemia --Afebrile, no leukocytosis. --Accucheck ACHS --Insulin sliding scale --Hypoglycemia protocol --Continue with home meds: Metformin and Soliqua. >Jjuu/Bipolar disorder --To be admitted to [facility] involuntarily after glucose level <200. --Hold depressive meds since pt currently manic. --Psych consult if acute treatment needed. >Hypokalemia --Likely side effect from insulin --S/P PO K-dur 40mEq. --Repeat BMP this afternoon. >DVT Prophylaxis --SCD's --Lovenox Case discussed with Dr Leesa Clarke PGY-2 - Date & Time Date: 02/01/19 Time: 09:50 <Jacinto Landers - Last Filed: 02/02/19 15:11> Results - Vital Signs Recent Vital Signs: Last Vital Signs Temp 97.7 F 02/02/19 01:16 Pulse 81 02/02/19 09:36 Resp 19 02/02/19 01:16 BP 126/76 02/02/19 09:36 Pulse Ox 97 02/02/19 01:16 - Labs Result Diagrams: 02/01/19 03:20 02/01/19 11:45 Labs: Laboratory Results - last 24 hr 02/01/19 02/01/19 02/02/19 16:00 21:04 06:25 POC Glucose (mg/dL) 190 H 175 H 210 H 02/02/19 02/02/19 11:09 13:52 POC Glucose (mg/dL) 184 H 184 H Assessment & Plan - Assessment and Plan (Free Text) Assessment: Patient was personally seen and examined by me in rounds with residents. Available labs and diagnostic data reviewed. Case, Patient's condition and management plan discussed with residents in rounds. Agree with resident's progress note. Plan: As ordered.
[2019-02-01 09:26] VITALS: BMI 29.6
--- NOTE | 2019-02-01 09:28 | RAD ---
Date of service: 01/31/2019 HISTORY: for crisis COMPARISON: No prior. TECHNIQUE: 1 view obtained. FINDINGS: LUNGS: No active pulmonary disease. PLEURA: No significant pleural effusion identified, no pneumothorax apparent. CARDIOVASCULAR: No aortic atherosclerotic calcification present. Normal cardiac size. No pulmonary vascular congestion. OSSEOUS STRUCTURES: No significant abnormalities. VISUALIZED UPPER ABDOMEN: Normal. OTHER FINDINGS: None. IMPRESSION: No active disease.
[2019-02-01 12:26] LABS: BLOOD UREA NITROGEN 14 mg/dl (9-20); CALCIUM 8.9 mg/dL (8.4-10.2); GFR NON-AFRICAN AMERICAN > 60
[2019-02-01] MEDS: Enoxaparin 40 mg Syringe SC SCH (12:27)
[2019-02-01] MEDS: Insulin Lispro (humaLOG) 100 Units/ml Inj SC SCH ×3 (14:46→23:09)
--- NOTE | 2019-02-01 15:37 | CP.PCM.CON ---
History of Present Illness - History of Present Illness History of Present Illness: pt is 43 ys old male with previous diagnosis of bipolar disorder brought to ER by due to manic and disorganized behaviour pt has been having spending sprees, sexually preoccupied, increased energy , pressured speech, poor sleep, pt having paranoid delusions towards and threatening to hurt her pt has been refusing medications and refusing admission to psychiatry, he was screened and accepted for involuntary admission at [facility] pt admitted to medical floor for stabilization of blood glucose prior to transfer to [facility] Past Patient History - Past Medical History & Family History Past Medical History?: Yes - Past Social History Smoking Status: Never Smoked - CARDIAC Hx Cardiac Disorders: Yes Hx Hypercholesterolemia: Yes Hx Hypertension: Yes - PULMONARY Hx Respiratory Disorders: Yes Hx Asthma: Yes ("WHEN I WAS YOUNGER- NO LONGER A PROBLEM.") - NEUROLOGICAL Hx Neurological Disorder: No HX Cerebrovascular Accident: No Hx Seizures: No - HEENT Hx HEENT Problems: No - RENAL Hx Chronic Kidney Disease: No - ENDOCRINE/METABOLIC Hx Endocrine Disorders: Yes Hx Diabetes Mellitus Type 2: Yes - HEMATOLOGICAL/ONCOLOGICAL Hx Blood Disorders: No Hx AIDS: No Hx Cancer: No Hx Human Immunodeficiency Virus (HIV): No - INTEGUMENTARY Hx Dermatological Problems: No - MUSCULOSKELETAL/RHEUMATOLOGICAL Hx Musculoskeletal Disorders: No Hx Falls: No Other/Comment: " I HAD SURGERY ON MY LEG BECAUSE I HAD FLAT FEET."(PT. UNABLE TO GIVE ANY OTHER INFO.) - GASTROINTESTINAL Hx Gastrointestinal Disorders: No - GENITOURINARY/GYNECOLOGICAL Hx Sexually Transmitted Disorders: No - PSYCHIATRIC Hx Psychophysiologic Disorder: Yes Hx Depression: Yes (major depressive disorder) Hx Substance Use: No - SURGICAL HISTORY Hx Surgeries: Yes Other/Comment: HX: "SURGERY TO LEG" - ANESTHESIA Hx Anesthesia: Yes Hx Anesthesia Reactions: No Hx Malignant Hyperthermia: No Has any member of the family had a problem w/ anesthesia?: No Meds Allergies/Adverse Reactions: Allergies Allergy/AdvReac Type Severity Reaction Status Date / Time Penicillins Allergy Intermediate "RASH AND Verified 11/30/18 08:42 SWELLING" - Medications Medications: Current Medications Dextrose (Dextrose 50% Inj) 0 ml IV STAT PRN; Protocol PRN Reason: Hypoglycemia Protocol Dextrose (Glutose 15) 0 gm PO ONCE PRN; Protocol PRN Reason: Hypoglycemia Protocol Enoxaparin Sodium (Lovenox) 40 mg SC DAILY [facility]; Protocol Last Admin: 02/01/19 12:27 Dose: 40 mg Glucagon (Glucagen Diagnostic Kit) 0 mg IM STAT PRN; Protocol PRN Reason: Hypoglycemia Protocol Insulin Detemir (Levemir) 30 units SC HS [facility] Insulin Human Lispro (Humalog) 0 units SC ACCU-CHECK MISSY; Protocol Last Admin: 02/01/19 14:46 Dose: 4 units Lisinopril (Zestril) 5 mg PO DAILY [facility] Metformin HCl (Glucophage) 1,000 mg PO BID [facility] Last Admin: 02/01/19 12:27 Dose: 1,000 mg Nicotine (Nicoderm Cq) 1 patch TD DAILY [facility] Last Admin: 02/01/19 12:26 Dose: 1 patch Pravastatin Sodium (Pravachol) 20 mg PO HS [facility] Results - Vital Signs Recent Vital Signs: Last Vital Signs Temp 97.2 F L 02/01/19 09:00 Pulse 72 02/01/19 09:55 Resp 18 02/01/19 09:55 BP 122/82 02/01/19 09:00 Pulse Ox 95 02/01/19 09:00 - Labs Result Diagrams: 02/01/19 03:20 02/01/19 11:45 Labs: Laboratory Results - last 24 hr 01/31/19 01/31/19 01/31/19 14:51 17:44 19:14 WBC RBC Hgb Hct MCV MCH MCHC RDW Plt Count MPV Neut % (Auto) Lymph % (Auto) [place] % (Auto) Eos % (Auto) Baso % (Auto) Neut # (Auto) Lymph # (Auto) [place] # (Auto) Eos # (Auto) Baso # (Auto) Sodium Potassium Chloride Carbon Dioxide Anion Gap BUN Creatinine Est GFR ( Amer) Est GFR (Non-Af Amer) POC Glucose (mg/dL) 395 H > 500 H* 240 H Random Glucose Calcium 01/31/19 01/31/19 02/01/19 20:19 22:53 00:39 WBC RBC Hgb Hct MCV MCH MCHC RDW Plt Count MPV Neut % (Auto) Lymph % (Auto) [place] % (Auto) Eos % (Auto) Baso % (Auto) Neut # (Auto) Lymph # (Auto) [place] # (Auto) Eos # (Auto) Baso # (Auto) Sodium Potassium Chloride Carbon Dioxide Anion Gap BUN Creatinine Est GFR ( Amer) Est GFR (Non-Af Amer) POC Glucose (mg/dL) 225 H 273 H 216 H Random Glucose Calcium 02/01/19 02/01/19 02/01/19 03:01 03:20 03:20 WBC 10.7 RBC 5.03 Hgb 14.6 Hct 42.9 MCV 85.4 MCH 29.1 MCHC 34.1 RDW 13.4 Plt Count 236 MPV 8.7 Neut % (Auto) 55.1 Lymph % (Auto) 39.6 [place] % (Auto) 2.7 Eos % (Auto) 2.0 Baso % (Auto) 0.6 Neut # (Auto) 5.9 Lymph # (Auto) 4.2 [place] # (Auto) 0.3 Eos # (Auto) 0.2 Baso # (Auto) 0.1 Sodium 138 Potassium 3.1 L Chloride 106 Carbon Dioxide 23 Anion Gap 12 BUN 15 Creatinine 0.4 L Est GFR ( Amer) > 60 Est GFR (Non-Af Amer) > 60 POC Glucose (mg/dL) 237 H Random Glucose 205 H Calcium 8.4 02/01/19 02/01/19 02/01/19 04:47 04:51 06:46 WBC RBC Hgb Hct MCV MCH MCHC RDW Plt Count MPV Neut % (Auto) Lymph % (Auto) [place] % (Auto) Eos % (Auto) Baso % (Auto) Neut # (Auto) Lymph # (Auto) [place] # (Auto) Eos # (Auto) Baso # (Auto) Sodium Potassium Chloride Carbon Dioxide Anion Gap BUN Creatinine Est GFR ( Amer) Est GFR (Non-Af Amer) POC Glucose (mg/dL) 231 H 215 H 233 H Random Glucose Calcium 02/01/19 02/01/19 02/01/19 06:47 08:00 11:06 WBC RBC Hgb Hct MCV MCH MCHC RDW Plt Count MPV Neut % (Auto) Lymph % (Auto) [place] % (Auto) Eos % (Auto) Baso % (Auto) Neut # (Auto) Lymph # (Auto) [place] # (Auto) Eos # (Auto) Baso # (Auto) Sodium Potassium Chloride Carbon Dioxide Anion Gap BUN Creatinine Est GFR ( Amer) Est GFR (Non-Af Amer) POC Glucose (mg/dL) 225 H 227 H 230 H Random Glucose Calcium 02/01/19 11:45 WBC RBC Hgb Hct MCV MCH MCHC RDW Plt Count MPV Neut % (Auto) Lymph % (Auto) [place] % (Auto) Eos % (Auto) Baso % (Auto) Neut # (Auto) Lymph # (Auto) [place] # (Auto) Eos # (Auto) Baso # (Auto) Sodium 138 Potassium 3.9 Chloride 107 Carbon Dioxide 24 Anion Gap 11 BUN 14 Creatinine 0.4 L Est GFR ( Amer) > 60 Est GFR (Non-Af Amer) > 60 POC Glucose (mg/dL) Random Glucose 214 H Calcium 8.9 Assessment & Plan - Assessment and Plan (Free Text) Assessment: BIPOLAR i DISORDER mre MANIC SEVERE WITH PSYCHOTIC FEATURES Plan: RECOMMEND STARTING DEPAKOTE 500MG BID START HALDOL 5MG PO Q8 PRN FOR AGITATION ATIVAN 1MG PO Q8 PRN FOR ANXIETY AND BENADRYL 25 MG PO Q8 PRN FOR EPS
[2019-02-01] MEDS: Divalproex 125 mg Sprinkle Capsule PO SCH (16:59)
[2019-02-01] MEDS ORDERED: Pravastatin Sodium 20 MG TAB PO SCH (22:00)
[2019-02-01] MEDS ORDERED: Insulin Detemir 100 Units/ml Inj SC SCH (22:00)
[2019-02-02 01:17] VITALS: BP 126/76; PULSE 81; RESP 19; TEMP 97.7; O2SAT 97
[2019-02-02] MEDS: Divalproex 125 mg Sprinkle Capsule PO SCH (09:36)
[2019-02-02] MEDS: Enoxaparin 40 mg Syringe SC SCH (09:38)
[2019-02-02] MEDS: Insulin Lispro (humaLOG) 100 Units/ml Inj SC SCH ×2 (09:40→12:49)
[2019-02-02] MEDS ORDERED: Insulin Detemir 100 Units/ml Inj SC SCH (22:00)
--- NOTE | 2019-02-04 08:35 | PN ---
DATE: 02/02/2019 SUBJECTIVE: The patient is seen and examined. Interim events noted. The patient remains in regular medical floor with one-to-one observation. The patient is awake, responsive, feels okay. Denies any specific complaints. No chest pain or shortness of breath, or dizziness, or constipation. PHYSICAL EXAMINATION: GENERAL: The patient is in no acute distress. VITAL SIGNS: Stable. HEART: S1 and S2. Normal and regular. LUNGS: Good bilateral air exchange. ABDOMEN: Soft and nontender. EXTREMITIES: No edema, no calf swelling, no tenderness, no acute ischemia. CENTRAL NERVOUS SYSTEM: Essentially unchanged. DIAGNOSTIC DATA: Available diagnostic data reviewed. Accu-Cheks are . ASSESSMENT AND PLAN: Overall, the patient is medically stable and improved. Plan as ordered. Case and plan discussed with the patient. The patient is on one-to-one observation. Jacinto Landers MD
== END 2019-02-02 16:24 ==
LOC: H.ER 22:19 → H.ERHOLD 01-31 10:41 → UNDOADMIN 01-31 10:41 → H.ERHOLD 02-01 08:03 → H.MEDSURG1 02-01 08:58
PROVIDERS: ADMIT Internal Medicine; ATTEND Internal Medicine
DX: F31.2 Bipolar disorder, current episode manic severe with psychotic features (principal); E87.6 Hypokalemia; E11.65 Type 2 diabetes mellitus with hyperglycemia; F41.9 Anxiety disorder, unspecified; I10 Essential (primary) hypertension; E78.00 Pure hypercholesterolemia, unspecified; F17.210 Nicotine dependence, cigarettes, uncomplicated; Z79.4 Long term (current) use of insulin; Z88.0 Allergy status to penicillin
CPT/HCPCS: 36415; 70450; 80048; 80320; 80324; 80329; 80345; 80346; 80349; 80353; 80358; 80361; 81003; 82803; 82948; 83992; 85025; 96372; 96374; 99285; G0378; J1650; J7030